=== PATIENT | female | born 1940 | race Caucasian/White ===

== ENCOUNTER 2020-05-16 19:22 | Inpatient (IN) | payer MEDICARE, BC ==
[~2020-05-16] VITALS: Ht 160 cm; Wt 78.0 kg
[~2020-05-16 19:22] MED LIST: ASPI-1265 PO; INSU100V9 SQ; LISI-600 PO; PANT40TA4 PO; TICA90TA PO
[2020-05-16] MEDS ORDERED: ondansetron/PF 4mg/2ml inj IV ONE (19:45)
[2020-05-16] MEDS ORDERED: normal saline 1000ML IV soln IVB ONE (19:45)
[2020-05-16 19:54] LABS: BASOPHILS % (AUTO) 0.4 % (0-1); EOSINOPHILS % (AUTO) 0.4 % (0-6); HEMATOCRIT 37.2 % (35.0-45.0); HEMOGLOBIN 12.2 g/dl (12.0-16.0); LYMPHOCYTES # (AUTO) 1.3 X10'3 (1.1-4.8); LYMPHOCYTES % (AUTO) 18.3 % (21-51); MEAN CORPUSCULAR HGB CONC 32.9 g/dL (33.0-36.5); MEAN PLATELET VOLUME 6.9 FL (7.4-10.4); MONOCYTES # (AUTO) 0.5 X10'3 (0-0.9); MONOCYTES % (AUTO) 6.2 % (2-12); NEUTROPHILS # (AUTO) 5.5 X10'3 (1.8-7.7); NEUTROPHILS % (AUTO) 74.7 % (42-75); PLATELET COUNT 238 X10'3 (140-440); RED BLOOD COUNT 4.23 X10'6 (4.20-5.60); RED CELL DISTRIBUTION WIDTH 14.9 % (11.5-14.5); WHITE BLOOD COUNT 7.4 X10'3 (4.5-11.0)
[2020-05-16 20:09] LABS: ALANINE AMINOTRANSFERASE 13 U/L (12-78); ALBUMIN/GLOBULIN RATIO 0.7 (1.1-1.5); ALKALINE PHOSPHATASE 99 IU/L (46-116); ANION GAP 12 (8-16); ASPARTATE AMINO TRANSFERASE 16 U/L (10-37); BILIRUBIN,TOTAL 0.9 MG/DL (0.1-1.0); BLOOD UREA NITROGEN 15 MG/DL (7-18); BUN/CREATININE RATIO 16.1 (6.6-38.0); CALCIUM 9.1 MG/DL (8.5-10.1); CHLORIDE 107 MMOL/L (99-107); CREATININE 0.93 MG/DL (0.40-0.90); GLUCOSE 123 MG/DL (70-104); LIPASE 98 U/L (73-393); POTASSIUM 3.5 MMOL/L (3.5-5.1); SODIUM 142 MMOL/L (135-145); TOTAL CARBON DIOXIDE 23.3 MMOL/L (24-32); TOTAL PROTEIN 7.2 G/DL (6.4-8.2); eGFR 58 ML/MIN
[2020-05-16 21:18] LABS: TROPONIN I < 0.04 NG/ML (0.0-0.05)
[2020-05-16] MEDS ORDERED: proCHLORperazine 10 MG/2 ml inj IV ONE (21:25)
[2020-05-16] MEDS ORDERED: nitroGLYCERIN 0.4mg SUBLingual tab SL PRN (21:25)
[2020-05-16] MEDS ORDERED: potassium Cl 20 mEq SR tablet PO PRN ×2 (22:40)
[2020-05-16] MEDS ORDERED: magnesium 2GM in 50ml NS 50 ML IV PRN (22:40)
[2020-05-16] MEDS ORDERED: potassium CL 10mEq/100ml bag 100 ML IV PRN ×2 (22:40)
[2020-05-16] MEDS ORDERED: magnesium 4gm in 100ml NS 100 ML IV PRN (22:40)
[2020-05-16] MEDS ORDERED: ondansetron/PF 4mg/2ml inj IV PRN (22:40)
[2020-05-16] MEDS ORDERED: magnesium Cl slow-release 64mg tablet PO PRN (22:40)
[2020-05-16] MEDS ORDERED: UNABLE TO OBTAIN (22:48)
--- NOTE | 2020-05-16 22:48 | NUR ---
Patient unsure what medications or dose of medications she takes
--- NOTE | 2020-05-16 23:05 | NUR ---
I have received pt report from KEKE Oconnell (ED) and had the opportunity to ask questions. Pt will be transferred to Rm 3021U.
--- NOTE | 2020-05-16 23:15 | NUR ---
Pt arrived at the unit via gurney. Pt has her belongings with her (2 full dentures - pt wearing it; slippers & house dress ); placed on tele monitor #[id number]. Pt denied having chest pain. 2 RN skin assessment & MRSA swab done.
[2020-05-16 23:30] VITALS: BP 179/81
[2020-05-17] MEDS: normal saline 1000ml 1,000 ML IV SCH ×4 (00:25→23:15)
[2020-05-17 01:30] VITALS: BP 157/70
[2020-05-17 02:29] LABS: BASOPHILS % (AUTO) 0.6 % (0-1); EOSINOPHILS % (AUTO) 0.6 % (0-6); HEMATOCRIT 35.5 % (35.0-45.0); HEMOGLOBIN 11.7 g/dl (12.0-16.0); LYMPHOCYTES # (AUTO) 1.1 X10'3 (1.1-4.8); LYMPHOCYTES % (AUTO) 17.2 % (21-51); MEAN CORPUSCULAR HEMOGLOBIN 29.1 PG (27.0-31.0); MEAN CORPUSCULAR HGB CONC 32.9 g/dL (33.0-36.5); MEAN CORPUSCULAR VOLUME 88.5 FL (78-98); MEAN PLATELET VOLUME 7.2 FL (7.4-10.4); MONOCYTES # (AUTO) 0.4 X10'3 (0-0.9); MONOCYTES % (AUTO) 6.6 % (2-12); NEUTROPHILS # (AUTO) 4.7 X10'3 (1.8-7.7); PLATELET COUNT 217 X10'3 (140-440); RED BLOOD COUNT 4.01 X10'6 (4.20-5.60); RED CELL DISTRIBUTION WIDTH 14.6 % (11.5-14.5); WHITE BLOOD COUNT 6.2 X10'3 (4.5-11.0)
[2020-05-17 03:30] LABS: ALBUMIN 2.5 G/DL (3.4-5.0); ANION GAP 12 (8-16); BLOOD UREA NITROGEN 13 MG/DL (7-18); CALCIUM 8.3 MG/DL (8.5-10.1); CHLORIDE 110 MMOL/L (99-107); CREATININE 0.81 MG/DL (0.40-0.90); GLUCOSE 163 MG/DL (70-104); MAGNESIUM 2.1 MG/DL (1.5-2.4); POTASSIUM 3.5 MMOL/L (3.5-5.1); SODIUM 144 MMOL/L (135-145); TOTAL CARBON DIOXIDE 22.2 MMOL/L (24-32); eGFR 68 ML/MIN
--- NOTE | 2020-05-17 05:04 | NUR ---
Paged Dr. Danielson. PAGER ID: [phone] MESSAGE: This is KEKE Mo from [facility]. Pt in Rm 3023B [place], Jenny 80F with Dx : Abdominal pain. She hasn't urinated yet. Pt stated that she feels there's something,but she can't go. Do you want me to straight cath the pt? Thanks!
[2020-05-17] MEDS: magnesium hydroxide 30ml (MOM) UD suspension PO PRN ×2 (05:31→21:00)
[2020-05-17 06:00] VITALS: BP 134/60
--- NOTE | 2020-05-17 06:28 | NUR ---
7Problems reprioritized. Patient report given, questions answered & plan of care reviewed with KEKE Das.
--- NOTE | 2020-05-17 06:30 | NUR ---
Patient in room PCU 3023. I have received report from Lucinda DAVIES and had the opportunity to ask questions and assume patient care.
[2020-05-17] MEDS ORDERED: DIAZ5TAB5 PO (07:43)
[2020-05-17] MEDS ORDERED: NITR1PAT68 TOP (07:43)
[2020-05-17] MEDS ORDERED: ATOR40TA72 PO (07:43)
[2020-05-17] MEDS ORDERED: CARV3.122 PO (07:43)
[2020-05-17] MEDS ORDERED: HYDR-3964 PO (07:43)
[2020-05-17] MEDS ORDERED: AMLO5TAB16 PO (07:43)
[2020-05-17] MEDS ORDERED: FURO40TA4 PO (07:43)
[2020-05-17] MEDS ORDERED: PANT-47 PO (07:44)
[2020-05-17] MEDS ORDERED: TICA90TA2 PO (07:44)
[2020-05-17] MEDS: docusate sod 100mg capsule PO SCH ×2 (08:00→21:00)
[2020-05-17] MEDS: nystatin 15 GM powder TP SCH ×3 (08:00→21:00)
[2020-05-17] MEDS: K and/or MAG REPLACEMENT MC SCH ×2 (08:00→20:00)
[2020-05-17 11:00] VITALS: BP 159/59
--- NOTE | 2020-05-17 15:07 | NUR ---
PAGER ID: [phone] MESSAGE: daughter at the bedside for 3022 she would like to discuss DNR before she leaves
[2020-05-17 18:00] VITALS: BP 145/54
--- NOTE | 2020-05-17 18:15 | NUR ---
Patient in room PCU 3023. I have received report from KEKE Marie and had the opportunity to ask questions and assume patient care.
[2020-05-17 22:00] VITALS: BP 153/68
[2020-05-18 02:00] VITALS: BP 146/73
[2020-05-18 05:49] LABS: BASOPHILS % (AUTO) 0.7 % (0-1); EOSINOPHILS # (AUTO) 0.2 X10'3 (0-0.9); EOSINOPHILS % (AUTO) 3.8 % (0-6); HEMATOCRIT 34.6 % (35.0-45.0); HEMOGLOBIN 11.7 g/dl (12.0-16.0); LYMPHOCYTES # (AUTO) 1.3 X10'3 (1.1-4.8); LYMPHOCYTES % (AUTO) 28.1 % (21-51); MEAN CORPUSCULAR VOLUME 88.2 FL (78-98); MEAN PLATELET VOLUME 6.9 FL (7.4-10.4); MONOCYTES # (AUTO) 0.4 X10'3 (0-0.9); MONOCYTES % (AUTO) 8.8 % (2-12); NEUTROPHILS # (AUTO) 2.8 X10'3 (1.8-7.7); NEUTROPHILS % (AUTO) 58.6 % (42-75); PLATELET COUNT 175 X10'3 (140-440); RED BLOOD COUNT 3.92 X10'6 (4.20-5.60); RED CELL DISTRIBUTION WIDTH 14.6 % (11.5-14.5); WHITE BLOOD COUNT 4.7 X10'3 (4.5-11.0)
[2020-05-18 05:58] LABS: ALBUMIN 2.4 G/DL (3.4-5.0); ANION GAP 7 (8-16); BLOOD UREA NITROGEN 10 MG/DL (7-18); BUN/CREATININE RATIO 11.6 (6.6-38.0); CALCIUM 8.1 MG/DL (8.5-10.1); CHLORIDE 111 MMOL/L (99-107); CREATININE 0.86 MG/DL (0.40-0.90); GLUCOSE 111 MG/DL (70-104); MAGNESIUM 2.1 MG/DL (1.5-2.4); POTASSIUM 3.8 MMOL/L (3.5-5.1); SODIUM 144 MMOL/L (135-145); TOTAL CARBON DIOXIDE 25.6 MMOL/L (24-32); eGFR 63 ML/MIN
[2020-05-18 06:00] VITALS: BP 123/66
--- NOTE | 2020-05-18 06:03 | NUR ---
Problems reprioritized. Patient report given, questions answered & plan of care reviewed with Kim. DAVIES.
[2020-05-18] MEDS: K and/or MAG REPLACEMENT MC SCH (06:42)
[2020-05-18] MEDS: docusate sod 100mg capsule PO SCH (07:58)
[2020-05-18] MEDS ORDERED: HYDR-3964 PO (09:05)
[2020-05-18] MEDS ORDERED: POLY17PO10 PO (09:06)
== END 2020-05-18 10:50 | disposition home or self-care (01) | DRG 389 ==
LOC: ER 19:22 → ED HOLD 22:37 → PCU 3S 23:00
PROVIDERS: ADMIT Internal Medicine; ATTEND Internal Medicine
DX: K56.41 Fecal impaction (principal); E44.1 Mild protein-calorie malnutrition; K44.9 Diaphragmatic hernia without obstruction or gangrene; K80.20 Calculus of gallbladder without cholecystitis without obstruction; E11.9 Type 2 diabetes mellitus without complications; E78.00 Pure hypercholesterolemia, unspecified; R29.6 Repeated falls; I10 Essential (primary) hypertension; G89.29 Other chronic pain; K21.9 Gastro-esophageal reflux disease without esophagitis; I25.10 Atherosclerotic heart disease of native coronary artery without angina pectoris; I25.2 Old myocardial infarction; Z79.4 Long term (current) use of insulin; Z68.30 Body mass index [BMI] 30.0-30.9, adult; Z85.3 Personal history of malignant neoplasm of breast; Z90.12 Acquired absence of left breast and nipple; Z90.710 Acquired absence of both cervix and uterus; Z88.0 Allergy status to penicillin; Z88.8 Allergy status to other drugs, medicaments and biological substances; Z79.899 Other long term (current) drug therapy
CPT/HCPCS: 36415; 71045; 74176; 80048; 80053; 82948; 83690; 83735; 84484; 85025; 87081; 93005; 96374; 97110; 97116; 97162; 99285; G0378; J0780; J2405; J7030

== ENCOUNTER 2020-08-21 01:23 | Emergency (ER) | payer MEDICARE, BC ==
[~2020-08-21] VITALS: Ht 160 cm; Wt 76.4 kg
[~2020-08-21 01:23] MED LIST changes: +AMLO5TAB16 PO; +ATOR40TA72 PO; +CARV3.122 PO; +FURO40TA4 PO; +HYDR-3964 PO; -LISI-600 PO; +NITR1PAT68 TOP; +PANT-47 PO; -PANT40TA4 PO; -TICA90TA PO; +TICA90TA2 PO
--- NOTE | 2020-08-21 02:59 | NUR ---
PT UP OUT OF BED TO BATHRROM WITH WALKER . STEADY GAIT NO C/O OF DIZZINESS OR SOB
[2020-08-21 04:02] LABS: BASOPHILS % (AUTO) 0.6 % (0-1); EOSINOPHILS # (AUTO) 0.2 X10'3 (0-0.9); EOSINOPHILS % (AUTO) 4.2 % (0-6); HEMATOCRIT 36.7 % (35.0-45.0); HEMOGLOBIN 12.6 g/dl (12.0-16.0); LYMPHOCYTES # (AUTO) 1.8 X10'3 (1.1-4.8); LYMPHOCYTES % (AUTO) 31.9 % (21-51); MEAN CORPUSCULAR HEMOGLOBIN 30.1 PG (27.0-31.0); MEAN CORPUSCULAR HGB CONC 34.3 g/dL (33.0-36.5); MEAN CORPUSCULAR VOLUME 87.8 FL (78-98); MEAN PLATELET VOLUME 6.9 FL (7.4-10.4); MONOCYTES # (AUTO) 0.5 X10'3 (0-0.9); MONOCYTES % (AUTO) 9.3 % (2-12); NEUTROPHILS # (AUTO) 3.1 X10'3 (1.8-7.7); PLATELET COUNT 169 X10'3 (140-440); RED BLOOD COUNT 4.18 X10'6 (4.20-5.60); RED CELL DISTRIBUTION WIDTH 14.3 % (11.5-14.5); WHITE BLOOD COUNT 5.8 X10'3 (4.5-11.0)
[2020-08-21 04:09] LABS: ALANINE AMINOTRANSFERASE 17 U/L (12-78); ALBUMIN 3.2 G/DL (3.4-5.0); ALBUMIN/GLOBULIN RATIO 0.9 (1.1-1.5); ALKALINE PHOSPHATASE 117 IU/L (46-116); ANION GAP 8 (8-16); ASPARTATE AMINO TRANSFERASE 13 U/L (10-37); BILIRUBIN,TOTAL 0.6 MG/DL (0.1-1.0); BLOOD UREA NITROGEN 19 MG/DL (7-18); BUN/CREATININE RATIO 21.1 (6.6-38.0); CALCIUM 8.5 MG/DL (8.5-10.1); CHLORIDE 103 MMOL/L (99-107); GLUCOSE 150 MG/DL (70-104); POTASSIUM 3.5 MMOL/L (3.5-5.1); SODIUM 138 MMOL/L (135-145); TOTAL CARBON DIOXIDE 27.5 MMOL/L (24-32); TOTAL PROTEIN 6.8 G/DL (6.4-8.2); eGFR 60 ML/MIN
[2020-08-21 05:00] LABS: CLARITY,URINE CLEAR (Clear); COLOR,URINE YELLOW (Yellow); GLUCOSE, URINE NEGATIVE (Neg); KETONES,URINE NEGATIVE (Neg); NITRITES, URINE NEGATIVE (Neg); OCCULT BLOOD,URINE TRACE-INTACT (Neg); PROTEIN,URINE NEGATIVE (Neg); UROBILINOGEN,URINE 0.2 E.U/dL (0.2-1.0)
[2020-08-21 05:07] LABS: UA COLLECTION TYPE CLN CATCH MIDSTREAM
[2020-08-21 05:09] LABS: LEUKOCYTE ESTERASE ,URINE NEGATIVE (Neg)
[2020-08-21 05:12] LABS: SQUAMOUS EPITHELIAL CELL,UR MODERATE /LPF (FEW)
[2020-08-21 05:13] LABS: TROPONIN I < 0.04 NG/ML (0.0-0.05)
[2020-08-21 05:13] LABS: WBC,URINE 0-4 /HPF (0-4)
[2020-08-21 05:14] LABS: RBC,URINE 0-2 /HPF (0-2)
[2020-08-21 05:19] LABS: BACTERIA,URINE 2+ /HPF (Neg); YEAST FEW /HPF (NEGATIVE)
--- NOTE | 2020-08-21 06:05 | NUR ---
PHONED PTS [facility]INO FOR TRANSPORTATION HOME PT ARRIVED VIA EMS. STATES HE WILL BE HERE TO FIRE [facility] CAP[facility] HIS BY [phone]
[2020-08-21 07:02] VITALS: BP 171/73
== END 2020-08-21 07:03 | disposition home or self-care (01) ==
LOC: ER 01:23
DX: R04.0 Epistaxis (principal); R07.89 Other chest pain; I25.10 Atherosclerotic heart disease of native coronary artery without angina pectoris; E78.00 Pure hypercholesterolemia, unspecified; I25.2 Old myocardial infarction; E11.9 Type 2 diabetes mellitus without complications; Z98.890 Other specified postprocedural states; Z88.0 Allergy status to penicillin; Z88.8 Allergy status to other drugs, medicaments and biological substances; Z79.82 Long term (current) use of aspirin; Z79.4 Long term (current) use of insulin; Z79.899 Other long term (current) drug therapy
CPT/HCPCS: 36415; 80053; 81001; 84484; 85025; 85610; 87088; 93005; 99284

== ENCOUNTER 2021-02-10 11:32 | Emergency (ER) | payer MEDICARE, BC ==
[~2021-02-10] VITALS: Ht 160 cm; Wt 77.3 kg
[~2021-02-10 11:32] MED LIST changes: +LIDOcaine 1% w/epiNEPHrine 1:200,000 30ml vial ONE
[2021-02-10] MEDS ORDERED: tranexamic acid 100mg/ml inj. TP ONE (11:40)
[2021-02-10] MEDS ORDERED: oxymetazoline 15 ML nasal spray NS ONE (11:40)
[2021-02-10] MEDS ORDERED: ondansetron 4mg rapidly disintigrating tab PO ONE (11:40)
--- NOTE | 2021-02-10 12:58 | NUR ---
PT'S [facility] WAS CALLED.
[2021-02-10 13:36] VITALS: BP 117/81
== END 2021-02-10 13:34 | disposition home or self-care (01) ==
LOC: ER 11:33
DX: R04.0 Epistaxis (principal); I25.10 Atherosclerotic heart disease of native coronary artery without angina pectoris; E78.00 Pure hypercholesterolemia, unspecified; I25.2 Old myocardial infarction; E11.9 Type 2 diabetes mellitus without complications; Z98.61 Coronary angioplasty status; Z88.0 Allergy status to penicillin; Z88.8 Allergy status to other drugs, medicaments and biological substances; Z79.82 Long term (current) use of aspirin; Z79.899 Other long term (current) drug therapy; Z79.4 Long term (current) use of insulin
CPT/HCPCS: 99284